=== PATIENT | female | born 1960 | race Caucasian/White ===

== ENCOUNTER → 2018-10-12 | Outpatient (CLI) | payer MEDICARE, MEDICAID ==
[~2018-10-12] MED LIST: CATHETER FLUSH 10 ML SYR IV PRN; DIATRIZOATE MEGLUM/SODIUM 37% 120 ML (GASTROGRAFIN) PO ONE; HOLD METFORMIN - RECEIVED CONTRAST 20 ML VIAL IV SCH; IOHEXOL 350 MG/ML 100 ML (OMNIPAQUE 350) VIAL IV ONE; NS 50 ML (IVPB) BAG IV ONE
--- NOTE | 2018-10-12 12:49 | Diagnostic Imaging Report ---
PROCEDURE: CT abdomen and pelvis with contrast. TECHNIQUE: Multiple contiguous axial images were obtained through the abdomen and pelvis after administration of intravenous contrast. INDICATION: GI bleed. COMPARISON: No prior studies are available for comparison. FINDINGS: The lung bases are clear. No discrete liver mass is identified. Gallbladder is unremarkable. No biliary ductal dilatation is identified. The pancreas and spleen are unremarkable. No adrenal mass is identified. The right kidney does appear to contain a solid mass in the lateral aspect of the mid right kidney measuring 3.0 cm in size. This is highly suspicious for renal cell carcinoma. The left kidney is unremarkable. Aorta is heavily calcified but nonaneurysmal. No definite central retroperitoneal or mesenteric lymphadenopathy is seen. The small and large bowel loops appear nonobstructed. The bladder and uterus are unremarkable. No pelvic lymphadenopathy is seen. There is no ascites. Bony structures are nonacute. IMPRESSION: 1. 3 cm solid right renal mass. This is consistent with renal cell carcinoma until proven otherwise. Urologic consultation is recommended. 2. No other significant abnormality is detected. Dictated by: Dictated on workstation # [id number]
== END ==
LOC: RAD FS 08:15
PROVIDERS: ATTEND Nurse Practitioner
DX: C18.2 Malignant neoplasm of ascending colon (principal); I63.9 Cerebral infarction, unspecified; K92.2 Gastrointestinal hemorrhage, unspecified; N28.89 Other specified disorders of kidney and ureter
CPT/HCPCS: 74177

== ENCOUNTER → 2019-03-03 | Outpatient (CLI) | payer MEDICARE, MEDICAID ==
[~2019-03-03] MED LIST changes: -DIATRIZOATE MEGLUM/SODIUM 37% 120 ML (GASTROGRAFIN) PO ONE; +NS 100 ML (IVPB) BAG IV ONE; -NS 50 ML (IVPB) BAG IV ONE
[2019-03-03 14:05] LABS: BUN/CREATININE RATIO 27; CREATININE SERUM 0.78 MG/DL (0.60-1.30); GFR ESTIMATED > 60
--- NOTE | 2019-03-03 15:02 | Diagnostic Imaging Report ---
PROCEDURE: CT abdomen with and without contrast. TECHNIQUE: Multiple contiguous axial CT images of the abdomen were obtained prior to and after intravenous administration of iodinated contrast. Auto Exposure Controls were utilized during the CT exam to meet ALARA standards for radiation dose reduction. INDICATION: Right renal mass, follow-up. Correlation is made with prior CT from 10/12/2018. FINDINGS: Lung bases are clear apart from a calcified granuloma in the medial left lower lobe. No discrete liver mass is identified. The gallbladder is contracted. No biliary ductal dilatation is seen. The pancreas and spleen are unremarkable. No adrenal mass is identified. Previously noted enhancing mass in the right kidney is stable in size at 3.1 cm compared with 3.0 cm on prior. No new renal mass is seen. No central retroperitoneal or mesenteric lymphadenopathy is seen. Aorta is heavily calcified but nonaneurysmal. There is no ascites. Bowel loops are normal caliber. IMPRESSION: Stable solid right renal mass when compared with exam from 10/12/2018. Dictated by: Dictated on workstation # [id number]
== END ==
LOC: RAD FS 13:21
DX: N28.89 Other specified disorders of kidney and ureter (principal)
CPT/HCPCS: 36415; 74170; 82565; 84520

== ENCOUNTER 2022-03-10 15:06 | Emergency (ER) | payer MEDICARE, MEDICAID ==
[~2022-03-10] VITALS: Ht 165 cm; Wt 72.0 kg
[2022-03-10 15:19] VITALS: BP 180/72
[2022-03-10] MEDS ORDERED: ACETAMINOPHEN 500 MG TAB (TYLENOL) PO ONE (15:45)
--- NOTE | 2022-03-10 15:46 | ED Head Injury ---
General Chief Complaint: Head/Cervical Problems Stated Complaint: HEAD INJ Nursing Triage Note: Patient has ambulated to ER 4 with cc of having a fall - she was stepping up on a step and she fell backwards. Patient reports that she landed on her buttom, then her back, and hit her head on the concrete. Family concerned and has brought patient to ER for evaluation. Source: patient Exam Limitations: no limitations History of Present Illness Date Seen by Provider: Mar 10, 2022 Time Seen by Provider: 03:40 Initial Comments Patient is a 61-year-old female who presents with minor head injury after falling backward after missing a step landing on her buttocks and hitting her head off of concrete. The patient's buttocks broke her fall. She denies loss of consciousness feeling dazed, headache or neck pain. She is not nauseated. She denies other pain complaint denies medical symptoms prior to the fall. She is on a daily baby aspirin. She has a scalp hematoma with tenderness localized to that region. There is no laceration or abrasion. No other symptoms or complaints. Remote history of cerebral aneurysm. Occurred: just prior to arrival Location: other Method of Injury: other Associated Systoms: Other Allergies and Home Medications Allergies Coded Allergies: No Allergy Information Available (Unverified , 10/12/18) Patient Home Medication List Home Medication List Reviewed: Yes Review of Systems Review of Systems Constitutional: see HPI Eyes: See HPI Ears, Nose, Mouth, Throat: see HPI Respiratory: see HPI Cardiovascular: see HPI Gastrointestinal: see HPI Genitourinary: see HPI Musculoskeletal: see HPI Skin: see HPI Psychiatric/Neurological: See HPI Endocrine: See HPI Hematologic/Lymphatic: See HPI All Other Systems Reviewed Negative Unless Noted: No Past [id number] Hx Patient Social History Tobacco Use?: No Use of E-Cig and/or Vaping dev: No Substance use?: No Alcohol Use?: No Physical Exam Vital Signs Vital Signs - First Documented 03/10/22 15:19 Temp 35.6 Pulse 80 Resp 16 B/P (MAP) 180/72 (108) Pulse Ox 94 O2 Delivery Room Air Capillary Refill : Height, Weight, BMI Height: '" Weight: lbs. oz. kg; 26.00 BMI Method: General Appearance: WD/WN, no apparent distress HEENT: PERRL/EOMI, normal ENT inspection (Left parietal scalp hematoma), other Neck: non-tender, full range of motion, supple Cardiovascular: regular rate, rhythm Gastrointestinal: non tender, soft Extremities: normal range of motion Progress/Results/Core Measures Results/Orders My Orders Orders - FARTUN MCELROY DO Acetaminophen Tablet (Tylenol Tablet) (03/10/22 15:45) Ice: Apply To Affected Area (03/10/22 15:33) Vital Signs/I&O 03/10/22 15:19 Temp 35.6 Pulse 80 Resp 16 B/P (MAP) 180/72 (108) Pulse Ox 94 O2 Delivery Room Air Blood Pressure Mean: 108 Departure Communication (Admissions) History and exam reassuring. Recommendations supportive care watchful waiting P CP follow-up as needed. Typical closed head injury instructions provided. Patient verbalizes understanding agreement of discharge instruction prior to departure. Impression Primary Impression: Scalp hematoma Disposition: 01 HOME, SELF-CARE Condition: Stable Departure-Patient Inst. Decision time for Depature: 15:47 Referrals: BUCKY GARCIA (PCP) Primary Care Physician MAINE HIGUERA MD (Family) Primary Care Physician Patient Instructions: Minor Head Injury (DC) Add. Discharge Instructions: Your evaluated in the emergency department for fall standing and head injury. Your symptoms are consistent with a scalp hematoma with possible mild concussion syndrome. Please take Tylenol for pain and apply ice to affected area. Follow- up with your PCP for 3 to 5 days for reevaluation if symptoms persist. Return to the ED if new or worsening symptoms. All discharge instructions reviewed with patient and/or family. Voiced understanding. FARTUN MCELROY DO Mar 10, 2022 15:46
== END 2022-03-10 15:55 | disposition home or self-care (01) ==
LOC: EDUNIT# 15:06 → ER FS 15:07
DX: S00.03XA Contusion of scalp, initial encounter (principal); Z79.82 Long term (current) use of aspirin; W10.9XXA Fall (on) (from) unspecified stairs and steps, initial encounter
CPT/HCPCS: 99283